=== PATIENT | male | born 1955 | race Caucasian/White ===

== ENCOUNTER 2016-06-14 12:19 | Observation (INO) | payer OTHER ==
--- NOTE | 2016-06-13 17:38 | GHP ---
[f rep st] PREOP HISTORY AND PHYSICAL DATE OF ADMISSION: 06/14/2016 DATE OF SURGERY: 06/14/2016. PROBLEM: Proximal tibial fracture with mild displacement. HISTORY OF PRESENT ILLNESS: Patient is a 61-year-old male who will be admitted for a right open redu ction internal fixation of his proximal tibia fracture that he sustained on Friday of this week while skiing. Patient was turning to his left when his right leg hit a partially covered fallen tree. He was taken down by ski molder in [place]. He was then transferred to [facility]. He was seen by an orthopedist in [place], who gave him the option of keeping a long-leg cast on versus surgery. Because of his relationship with Dr. Merino with previous orthopedic surgeries, he elected to keep th e cast on and see Dr. Merino in followup. Based on discussion of recovery, the patient has elected t o proceed with an ORIF of the right proximal tibia. PAST MEDICAL HISTORY: Pertinent for coronary artery disease (he has ectatic coronary vessels) and hy percholesterolemia. No history of DVT hepatitis or sleep apnea. No history of MRSA. CURRENT MEDICATIONS: Atorvastatin 10 mg, Effient 10 mg, 325 mg strength aspirin daily and Wellbutrin . MEDICATION ALLERGIES: Penicillins which cause a rash. No history of metal allergies or latex allerg ies. SOCIAL HISTORY: Patient is . He is a nonsmoker. 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 Occasional alcohol intake. Moderate caffeine intake. Activities include biking, skiing an d hiking. FAMILY HISTORY: Pertinent for coronary artery disease. PAST SURGICAL HISTORY: Right and left total hip arthroplasties and shoulder surgery in 1975. PHYSICAL EXAMINATION: VITAL SIGNS: Height 6 feet 1 inch tall, weight 180 pounds. GENERAL: He is a n otherwise healthy-appearing, 61-year-old male. HEENT: Head is normocephalic, atraumatic. Eyes ar e PERRLA. Conjunctivae and sclerae are clear. Mouth: He has good oral hygiene without any loose te eth. LUNGS: Clear. HEART: Regular rate and rhythm without murmurs, gallops, or rubs. EXTREMITIES : Pertinent findings are limited to the patient's right leg. He has a long leg cast which has been bivalved. He has normal sensation to light touch of the toes. No swelling of the toes. DIAGNOSTIC IMAGING: Recent x-rays taken of the patient's right tibia today shows mildly displaced pr oximal tibial fracture. There was no obvious disruption of the medial or lateral plateaus of the kne e. No significant shortening is noted. IMPRESSION ON ADMISSION: 1. Acute right proximal tibia fracture with mild displacement. 2. Status post right and left total hip arthroplasties with a good result. 3. History of coronary artery disease. 4. History of treated hypercholesterolemia. PLAN: The plan will be for the patient to undergo an open reduction, internal fixation of a right pr oximal tibia fracture with Dr. Merino on 06/14/2016. The surgery was discussed with the patient incl uding the risks, complications, expectations and recovery time. We discussed the risk of infection, nerve injury, nonunion, or delayed union fracture. He understands the importance of postoperative ph ysical therapy. All of his questions are answered and he consents to surgery here in the office. Copy requested to: Dr. Girard at [facility] /[id number]/MODL
[2016-06-14] MEDS ORDERED: CEFAZOLIN 2 GM/DEXTROSE/100 ML BAG IV ONE (12:34)
[2016-06-14] MEDS ORDERED: LIDOCAINE 1% 5 ML SDV ONE (12:35)
[2016-06-14 13:08] LABS: % IMMATURE GRANULYOCYTES 0.2 % (0.0-1.1); ABSOLUTE IMMATURE GRANULOCYTES 0.01 10^3/uL (0.00-0.10); ADD DIFF? NO; ADD MORPH? NO; ADD SCAN? NO; ATYPICAL LYMPHOCYTE FLAG 0 (0-99); FRAGMENT RBC FLAG 0 (0-99); HEMATOCRIT 42.4 % (40.0-51.0); HEMOGLOBIN 14.7 g/dL (13.7-17.5); LEFT SHIFT FLG 0 (0-99); LIPEMIA HEMOLYSIS FLAG 90 (0-99); MEAN CELL HEMOGLOBIN 31.7 pg (27.9-34.1); MEAN CELL HEMOGLOBIN CONCENTR. 34.7 g/dL (32.4-36.7); MEAN CELL VOLUME 91.6 fL (81.5-99.8); MEAN PLATELET VOLUME 9.6 fL (8.7-11.7); PLATELET CLUMPS FLAG 0 (0-99); PLATELET COUNT 234 10^3/uL (150-400); RED BLOOD CELL COUNT 4.63 10^6/uL (4.40-6.38); RED CELL DISTRIBUTION WIDTH 13.5 % (11.5-15.2)
[2016-06-14] MEDS ORDERED: ceFAZolin 2 GM/DEXTROSE 100 ML IV ONE (13:30)
[2016-06-14] MEDS ORDERED: TRANEXAMIC ACID IV ONE (14:30)
[2016-06-14] MEDS ORDERED: NS IV ONE (14:30)
[2016-06-14] MEDS ORDERED: MIDAZOLAM 2 MG/2 ML VIAL ONE (14:36)
[2016-06-14] MEDS ORDERED: PROPOFOL/EMULSION 500 MG/50 ML BOTTLE IV ONE (14:37)
[2016-06-14] MEDS ORDERED: fentaNYL 100 MCG/2 ML INJ ONE ×3 (14:38→15:40)
[2016-06-14] MEDS ORDERED: BUPIVACAINE 0.5% 30 ML SDV ONE (15:48)
--- NOTE | 2016-06-14 16:17 | POSTOPPROG ---
Post Op Note Date of Operation: 06/14/16 Surgeon: Medardo Merino Banquet Manager: Arslan Anesthesiologist: Alida Anesthesia: GET(General Endotracheal) Post-op Diagnosis: right tibia fracture Procedure: orif right tibia Inf/Abcess present in the surg proc area at time of surgery?: No EBL: 50-100
[2016-06-14] MEDS ORDERED: ONDANSETRON 4 MG/2 ML VIAL IVP PRN (16:22)
[2016-06-14] MEDS ORDERED: KETOROLAC 30 MG/1 ML SDV IVP PRN (16:22)
[2016-06-14] MEDS ORDERED: ONDANSETRON DISINTEGRATING 4 MG TAB PO PRN (16:22)
[2016-06-14] MEDS ORDERED: traMADol 50 MG TAB PO PRN (16:22)
[2016-06-14] MEDS ORDERED: PHARMACY PAIN CONSULT 1 EA MISC PRN (16:22)
[2016-06-14] MEDS ORDERED: PROMETHAZINE HCL 25 MG SUPPR PR PRN (16:22)
[2016-06-14] MEDS ORDERED: TEMAZEPAM 15 MG CAP PO PRN (16:22)
[2016-06-14] MEDS ORDERED: METOCLOPRAMIDE 10 MG/2 ML VIAL IVP PRN (16:22)
[2016-06-14] MEDS ORDERED: CYCLOBENZAPRINE 10 MG TAB PO PRN (16:22)
[2016-06-14] MEDS ORDERED: PROMETHAZINE HCL 25 MG/ML INJ IVP PRN (16:22)
[2016-06-14] MEDS ORDERED: diphenhydrAMINE 25 MG CAP PO PRN (16:22)
[2016-06-14] MEDS ORDERED: BISACODYL 10 MG SUPP PR PRN (16:22)
[2016-06-14] MEDS ORDERED: DIPHENOXYLATE/ATROPINE LOMOTIL 1 TAB PO PRN (16:22)
[2016-06-14] MEDS ORDERED: LACTULOSE 20 GM/30 ML UDCUP PO PRN (16:22)
[2016-06-14] MEDS ORDERED: NS 500 ML IV PRN (16:22)
[2016-06-14] MEDS ORDERED: MAGNESIUM HYDROXIDE 30 ML UDCUP PO PRN (16:22)
[2016-06-14] MEDS ORDERED: POLYETHYLENE GLYCOL 3350 17 GM PKT PO PRN (16:22)
[2016-06-14] MEDS ORDERED: LR 1,000 ML IV SCH (16:30)
--- NOTE | 2016-06-14 16:32 | DX ---
Fluoroscopy Provided for Open Reduction Internal Fixation at 1534 Hours Indication: Acute tibial fracture. Fluoroscopy time: 19.9 seconds. Dose: 1.5 mGy. Technique: 3 intraoperative spot films. Findings: A sideplate and cortical screws transfixes a proximal tibial fracture in anatomic alignment . Impression: Fluoroscopy provided for open reduction internal fixation tibial fracture.
[2016-06-14] MEDS: ACETAMINOPHEN 325 MG TAB PO SCH (18:25)
[2016-06-14] MEDS: FAMOTIDINE 20 MG TAB PO SCH (21:34)
[2016-06-14] MEDS: oxyCODONE IR 5 MG TAB PO PRN (21:34)
[2016-06-14] MEDS: SENNOSIDES/DOCUSATE SODIUM TAB PO SCH (21:34)
[2016-06-14] MEDS: ceFAZolin 2 GM/DEXTROSE 100 ML IV SCH (21:35)
--- NOTE | 2016-06-14 23:47 | GOP ---
[f rep st] OPERATIVE REPORT DATE OF OPERATION: 06/14/2016 SURGEON: Medardo Merino MD [employer] ASSISTANT: Felix Mcdaniels, PAC ANESTHESIA: General. ANESTHESIOLOGIST: Cruz Irwin M.D. PREOPERATIVE DIAGNOSIS: Right proximal tibia fracture. POSTOPERATIVE DIAGNOSIS: Right proximal tibia fracture. PROCEDURE PERFORMED: Open reduction, internal fixation of right proximal tibia fracture. FINDINGS: DESCRIPTION OF PROCEDURE: The patient was given 2 g of preoperative IV Ancef within 60 minutes of velazquez rgery. He also received IV tranexamic acid at a dose of 20 mg/kg. He was placed on the operating ro om table and given general anesthesia by Dr. Irwin. The time-out was performed to verify the correct patient identity and the correct surgical side. His bivalved fiberglass long-leg cast was removed. He had a 1 cm abrasion over the crest of his tibia a t the level of the fracture site. This looked like a superficial abrasion or perhaps a dried fractur e blister. The hair was removed from the proposed incision area. His right lower extremity was care fully prepped with ChloraPrep from the upper thigh tourniquet to the tips of the toes. The leg was c arefully supported during the preparation. It was draped free using sterile sheets, towels, and stoc kinette. The leg was exsanguinated with elevation and a 6-inch compressive wrap, and the pneumatic t ourniquet was inflated to 250 mmHg. The time-out was performed to verify the correct patient identity and the correct surgical side. I made approximately 7-inch longitudinal incision just to the medial side of the crest of the tibia a nd centered on the fracture site. The subcutaneous tissues were bluntly dissected down to the medial crest of the tibia. I was careful to only strip enough of the soft tissues from the medial cortex o f the tibia so that I could get the plate applied and visualize fracture reduction. I placed a large clamp on the distal end of the tibia and carefully manipulated the fracture to a reduced position. I then used a large locking clamp from anterior to posterior to lock it in place. There was moderate medial cortex comminution. The fragments were small enough that they were insignificant, and I coul d not do anything to individually internally fix them. I selected a 9-hole Synthes LCP plate. This was applied to the medial cortex of his tibia. I had to bend the plate slightly proximally to accommodate the flare of the medial tibial plateau. I placed 4 screws proximal to the fracture site and 4 screws distal to the fracture site. Two screws proximal were compression screws and 2 were locking screws. Distally, I put 2 locking screws and 2 compressi on screws. The reduction was anatomic on the medial cortex. I used fluoroscopy intermittently during the procedure to assure proper reduction of the fracture and proper position of the hardware. Fracture fixation was very secure. Once I had the exposure and the plate positioned properly, I let the tourniquet down. The tourniquet time at that point was 27 minutes. The procedure was completed without the tourniquet. The wound was irrigated with saline. I pulled the fascia back over the plate and repaired it with so me interrupted 2-0 Vicryl sutures. The subcutaneous tissues were closed with interrupted 2-0 Vicryl sutures. The skin was closed with binh. The wound was covered with Xeroform gauze and flat 4x4's . The knee was wrapped with a Kerlix and a 6-inch Adin bandage. A long-leg GA stocking was applied. This was followed by a hinged knee brace with the hinges unlock ed. The total tourniquet time was 27 minutes. The blood loss was about 100 cc. He was awakened from anesthesia, transferred to his gurney and taken to PACU in satisfactory conditio n. There were no recognized intraoperative complications. Conner Mcdaniels acted as a surgical endoscopist. His assistance was a medical necessity. Copy requested to: Marin Girard. [facility] /[id number]/FANIL
[2016-06-15] MEDS: ACETAMINOPHEN 325 MG TAB PO SCH ×3 (00:41→12:45)
[2016-06-15] MEDS: oxyCODONE IR 5 MG TAB PO PRN ×2 (00:41→08:24)
[2016-06-15 04:50] VITALS: TEMP 98.1
[2016-06-15] MEDS: ceFAZolin 2 GM/DEXTROSE 100 ML IV SCH (06:00)
[2016-06-15] MEDS: FAMOTIDINE 20 MG TAB PO SCH (08:25)
[2016-06-15] MEDS: SENNOSIDES/DOCUSATE SODIUM TAB PO SCH (08:25)
[2016-06-15] MEDS ORDERED: ATORVASTATIN CALCIUM 10 MG TAB PO SCH (09:00)
--- NOTE | 2016-06-15 09:55 | SOAPPROG ---
SOAP Progress Note Assessment/Plan: Assessment: POD #1, s/p R tibia ORIF Awake, alert, afebrile. Dressing clean and dry. NVI. Mild to moderate pain. Plan: PT/OT today. Flat foot weight bearing with brace and crutches. Discharge to home later today. 06/15/16 09:43 Objective: Vital Signs Temp Pulse Resp BP Pulse Ox 36.7 C 65 16 106/72 98 06/15/16 04:50 06/15/16 04:50 06/15/16 04:50 06/15/16 04:50 06/15/16 04:50 Laboratory Results 06/14/16 13:00 06/14/16 06/15/16 06/16/16 05:59 05:59 05:59 Intake Total 2200 Output Total 1635 Balance 565 ICD10 Worksheet Patient Problems: Problems Problem Status Diagnosed Tibia fracture Acute Primary osteoarthritis of left hip Acute
[2016-06-15] MEDS ORDERED: buPROPion XL 150 MG TAB PO SCH (10:00)
[2016-06-15 12:39] VITALS: BP 123/91; PULSE 62; RESP 15; O2SAT 93
--- NOTE | 2016-06-19 11:53 | GDS ---
[f rep st] DISCHARGE SUMMARY ADMISSION DIAGNOSIS: Right proximal tibia fracture. DISCHARGE DIAGNOSIS: Right proximal tibia fracture. OPERATION PERFORMED: Open reduction, internal fixation of right proximal tibia fracture. POSTOPERATIVE COMPLICATIONS: None. CONDITION ON DISCHARGE: Improved. DESCRIPTION OF HOSPITAL COURSE: The patient was admitted to the hospital on the day of surgery. His admission white blood cell count was 6.39. Admission hemoglobin and hematocrit were 14.7 and 42.4. The same day, under general anesthesia, the patient underwent open reduction, internal fixation of his right proximal tibia fracture. The patient was treated with multimodal DVT prophylaxis, including Effient, GA stockings, and SCDs. The patient was seen by Physical Therapy and made good progress with knee range of motion and ankle range of motion exercises. By the time of discharge, he was independent with crutches and a walker. The patient is discharged to his home. He is flatfoot weightbearing x3 weeks. GA stockings for 1 week. Resume Effient at his normal dosage. Ice and elevate. He has a prescription for oxycodone and tramadol for pain control. He will be seen back in the office in 1 week. The patient is to call the office sooner if he has any problems. /[id number]/MODL MTDD
== END 2016-06-15 12:59 | disposition home or self-care (01) ==
LOC: F3N 12:19 → INTOOBSV 12:19 → F3N 17:10
PROVIDERS: ADMIT Orthopaedic Surgery; ATTEND Orthopaedic Surgery
PROC: 0QSG04Z Reposition Right Tibia with Internal Fixation Device, Open Approach (ICD-10-PCS; principal; 2016-06-14 14:00)
DX: S82.131A Displaced fracture of medial condyle of right tibia, initial encounter for closed fracture (principal); V00.328A Other snow-ski accident, initial encounter; Y93.23 Activity, snow (alpine) (downhill) skiing, snowboarding, sledding, tobogganing and snow tubing; Y92.828 Other wilderness area as the place of occurrence of the external cause; I25.10 Atherosclerotic heart disease of native coronary artery without angina pectoris; E78.00 Pure hypercholesterolemia, unspecified; Z88.0 Allergy status to penicillin; I25.2 Old myocardial infarction
CPT/HCPCS: 27535; 76001; 97161; 97165; C1769; G0378; C1713; J0690; J2250; J2704; J3010

== ENCOUNTER 2016-06-18 19:48 | Emergency (ER) | payer OTHER ==
[2016-06-18 19:54] VITALS: RESP 16; TEMP 98.1; O2SAT 96
--- NOTE | 2016-06-18 20:43 | EDPHY ---
H & P Stated Complaint: Pt had right leg surgery on 06/14/16 now having right calf pain Source: Patient Exam Limitations: No limitations - Personal History Current Tetanus/Diphtheria Vaccine: Yes Current Tetanus Diphtheria and Acellular Pertussis (TDAP): Yes Tetanus Vaccine Date: 2004 - Medical/Surgical History Hx Asthma: No Hx Chronic Respiratory Disease: No Hx Diabetes: No Hx Cardiac Disease: No Hx Renal Disease: No Hx Cirrhosis: No Hx Alcoholism: No Hx HIV/AIDS: No Hx Splenectomy or Spleen Trauma: No Other PMH: CAD. R ESTHELA (2004), L ESTHELA. Bilat hips replaced. Right shoulder replace - Social History Smoking Status: Never smoked Time Seen by Provider: 06/18/16 20:05 HPI/ROS: CHIEF COMPLAINT: right calf pain HISTORY OF PRESENT ILLNESS: 61-year-old male presents emergency department complaining of left calf pain that started this afternoon. Patient broke his tibia skiing 10 days ago, he had surgery done by Dr. Merino 5 days ago with plates and screws. He reports he has not had any pain in his calf until this afternoon. He states it feels very tight and swollen with sharp pain. Patient denies chest pain or shortness of breath, no history of blood clots. He denies fevers or chills, no numbness or tingling in his legs or foot. REVIEW OF SYSTEMS: A comprehensive 10 point review of systems is otherwise negative aside from elements mentioned in the history of present illness. (Leila Vizcarra) - Physical Exam Exam: Physical Exam Gen: Alert and Oriented, NAD HEENT: PERRL, moist mucous membranes NECK: no meningismus CV: regular rate and regular rhythm PULM: CTAB, no wheezes ABDOMEN: soft, non tender to palpation, BS present NEURO: Neurologically grossly intact EXTREMITIES: Right lower extremity with surgical dressing in place, Gagan hose, Kerlix and Adin wrap removed, xeroform kept in place, no surrounding erythema, no drainage from incision, medial ankle with 2+ pitting edema, no tenderness, compartments are soft, 2+ pedal pulses, sensation intact to light touch, posterior calf with tenderness to palpation, no cords. SKIN: See above PSYCH: answers questions appropriately. (Leila Vizcarra) Constitutional: Initial Vital Signs Temperature (C) 36.7 C 06/18/16 19:52 Heart Rate 76 06/18/16 19:52 Respiratory Rate 16 06/18/16 19:52 Blood Pressure 146/80 H 06/18/16 19:52 O2 Sat (%) 96 06/18/16 19:52 O2 Delivery Mode Room Air Allergies/Adverse Reactions: Penicillins Allergy (Unknown, Verified 06/18/16 19:50) Unknown Home Medications: Medication Instructions Recorded Prasugrel HCl [Effient 10mg (*)] 10 mg PO DAILY 04/30/12 Atorvastatin Calcium [Lipitor 10 10 mg PO DAILY 10/24/15 mg (*)] Bupropion HCl [Wellbutrin Xl] 300 mg PO DAILY 06/13/16 Acetaminophen [Tylenol 325mg (*)] 650 mg PO Q6HRS #0 tab 06/15/16 oxyCODONE IR [Oxycodone Ir (*)] 5 - 10 mg PO Q3HRS PRN #0 tab 06/15/16 traMADol [Ultram 50 mg (*)] 50 mg PO Q6HRS PRN #0 tab 06/15/16 Aspirin 325 mg (*) 06/18/16 Medical Decision Making - Diagnostics Imaging: Right lower extremity ultrasound- Impression: Negative. No deep venous thrombosis. Comment: I relayed these results to Dr. Cary Keenan 915 p.m. June 18, 2016. Dictated By: Jonny Storm MD (Leila Vizcarra) ED Course/Re-evaluation: 61-year-old male who recently had a right tibia ORIF by Dr. Merino 5 days ago presents with right calf pain. No chest pain or shortness of breath, no history of VTE. Right lower extremity ultrasound obtained showing no evidence of DVT. Patient is discharged home with instructions to ice, elevate and follow up with Dr. Merino as scheduled. He is given return precautions for any worsening symptoms, fevers, increased pain. Patient is comfortable with this plan. (Leila Vizcarra) Differential Diagnosis: Diagnosis considered but not limited to postoperative pain, DVT, surgical site infection. (Leila Vizcarra) Other Provider: The patient wasevaluatedand managed by themidlevel provider. Idiscussed the patient's presentation and course with thephysicianassistantor nurse practitionerand agree with theevaluation. My co-signature indicates that I have reviewed this chart and I agree with the findings and plan of care as documented. I am the secondary supervisingphysician. (Cary Keenan) Departure - Departure Disposition: Home, Routine, Self-Care Clinical Impression: Postoperative pain of extremity Condition: Good Instructions: Leg Pain (ED) Additional Instructions: Rest, ice, elevate. Return to the emergency department for any fevers, numbness , tingling, discoloration of you limb or other concerns. Follow up with Dr. Merino as scheduled. Referrals: Medardo Merino MD [Medical Doctor] - As per Instructions
--- NOTE | 2016-06-18 21:16 | US ---
Right Lower Extremity Deep Venous Duplex Ultrasound Indication: Posterior calf pain. Recent tibial fracture. Technique: The lower extremity deep venous system and veins of the proximal calf were interrogated wi th grayscale, color, and spectral Doppler imaging. Findings: The common femoral, femoral, popliteal, greater saphenous and posterior tibial and peroneal veins of the calf normally compress on grayscale imaging. The deep venous system and superficial vei ns of the proximal calf have normal flow and expected variability. No fluid collection. Impression: Negative. No deep venous thrombosis. Comment: I relayed these results to Dr. Cary Keenan 915 p.m. June 18, 2016.
[2016-06-18 22:02] VITALS: BP 131/84; PULSE 59
== END 2016-06-18 22:28 | disposition home or self-care (01) ==
DX: M79.661 Pain in right lower leg (principal); G89.18 Other acute postprocedural pain; I25.10 Atherosclerotic heart disease of native coronary artery without angina pectoris